=== PATIENT | female | born 1965 | race Caucasian/White ===

== ENCOUNTER 2021-06-24 09:29 | Outpatient (CLI) | payer OTHER | END 2021-06-24 09:30 | disposition home or self-care (01) | LOC: CSHULT 09:29 | PROVIDERS: ATTEND Family Medicine | DX: D05.12 Intraductal carcinoma in situ of left breast (principal); N60.92 Unspecified benign mammary dysplasia of left breast | CPT/HCPCS: 19083; 88305; 88341; 88342 ==